=== PATIENT | male | born 1980 | race Caucasian/White ===

== ENCOUNTER 2016-09-08 23:51 | Emergency (ER) | payer OTHER ==
[2016-09-08 23:57] VITALS: RESP 18; TEMP 97.6
[2016-09-09] MEDS ORDERED: PROPARACAINE HCL 0.5% OPHTHALMIC SOL ONE (00:11)
[2016-09-09] MEDS: PROPARACAINE HCL 0.5% OPHTHALMIC SOL EACHEYE ONE (00:20)
[2016-09-09] MEDS ORDERED: KETOROLAC TROMETHAMINE 30 MG/ML SOL ONE (00:21)
[2016-09-09] MEDS: KETOROLAC TROMETHAMINE 30 MG/ML SOL IM ONE (00:22)
[2016-09-09 00:48] VITALS: BP 135/66; PULSE 70; O2SAT 96
== END 2016-09-09 00:42 | disposition home or self-care (01) ==
LOC: ED 23:51
DX: H16.133 Photokeratitis, bilateral (principal)
CPT/HCPCS: 99283 ×2; J1885; 96372

== ENCOUNTER 2016-10-21 08:36 | Day surgery (SDC) | payer MEDICAID, OTHER ==
[2016-10-21] MEDS ORDERED: LIDOCAINE HCL 1% MPF SOL ONE (10:40)
[2016-10-21] MEDS ORDERED: PROPOFOL 500 MG/50 ML EMU IV ONE ×2 (10:40→10:46)
[2016-10-21] MEDS ORDERED: PROPOFOL 10 MG/ML EMU IV ONE (10:42)
[2016-10-21 11:43] VITALS: BP 120/73; PULSE 75; RESP 18; TEMP 97.6; O2SAT 99
== END 2016-10-21 12:00 | disposition home or self-care (01) ==
LOC: SURG 08:36
PROVIDERS: ATTEND Surgery
DX: R10.9 Unspecified abdominal pain (principal); K92.1 Melena; Z80.0 Family history of malignant neoplasm of digestive organs
CPT/HCPCS: 43235; 45378; J2001; J2704